=== PATIENT | female | born 1965 | race Caucasian/White ===

== ENCOUNTER → 2019-03-10 | Outpatient (CLI) | payer OTHER ==
[~2019-03-10] MED LIST: FISH OIL 1,0001 EAC5 PO; Hydrocodone-Apap 5-325 Tablet PO; IBUPROFEN 600 MG PO; Lovaza PO; MAG DELAY64 MG PO; MAGNES PO; Milk Of Magnesia Conc. PO; VITAMIN E400 UNIT PO; [UNRECOGNIZED DRUG - CODE] PO
== END ==
LOC: CAT 13:47
DX: Z13.6 Encounter for screening for cardiovascular disorders (principal); E78.00 Pure hypercholesterolemia, unspecified; I25.10 Atherosclerotic heart disease of native coronary artery without angina pectoris